=== PATIENT | male | born 1955 | race Caucasian/White ===

== ENCOUNTER 2020-07-05 17:15 | Emergency (ER) | payer BC ==
[~2020-07-05] VITALS: Ht 180.3 cm; Wt 84.1 kg
[2020-07-05 17:35] VITALS: TEMP 98.5
[2020-07-05 19:41] VITALS: BP 119/84; PULSE 68
== END 2020-07-05 19:50 | disposition home or self-care (01) ==
LOC: COL.ER 17:15
DX: S09.90XA Unspecified injury of head, initial encounter (principal); S01.01XA Laceration without foreign body of scalp, initial encounter; S61.101A Unspecified open wound of right thumb with damage to nail, initial encounter; R40.2412 Glasgow coma scale score 13-15, at arrival to emergency department; Z23 Encounter for immunization; W17.89XA Other fall from one level to another, initial encounter; Y92.59 Other trade areas as the place of occurrence of the external cause

== ENCOUNTER → 2020-07-14 | Outpatient (CLI) | payer BC ==
[2020-07-14 16:20] VITALS: BP 132/92; PULSE 96; TEMP 98.1
== END ==
LOC: COL.ER 16:14
DX: Z48.02 Encounter for removal of sutures (principal)